=== PATIENT | female | born 1995 | race Caucasian/White ===

== ENCOUNTER → 2017-10-02 | Outpatient (CLI) | payer MEDICAID ==
[~2017-10-02] MED LIST: ABAT50SY; CELE50CA PO; CLON0.1T PO; EC-N375T PO; FOLI400T PO; METH0.35; MONT4CHW2 CHEW; OMEP2.5S
== END ==
LOC: HORT 14:27
PROVIDERS: ATTEND Emergency Medicine
DX: Z46.89 Encounter for fitting and adjustment of other specified devices (principal)
CPT/HCPCS: L2114